=== PATIENT | female | born 1945 | race Caucasian/White ===

== ENCOUNTER → 2017-08-26 | Outpatient (CLI) | payer BC ==
[2016-06-20 11:54] VITALS: BP 134/77
--- NOTE | 2017-08-26 15:02 | KCIC ---
CHEST PA LATERAL History: 30 pound weight loss x1 month. Smoker. History of breast cancer. Comparison: None. Findings: Atherosclerotic aorta, arch. The cardiomediastinal silhouette is normal. Pulmonary vasculature is normal. Calcified left hilar lymph nodes. There is a 10 mm nodule on the lateral view that projects over the upper trachea. No correlate is seen on the frontal view. The lungs are otherwise clear. No pleural effusion or pneumothorax is seen. There is degenerative endplate spurring of the thoracic spine. There are bilateral breast implants. IMPRESSION: 10 mm nodule that projects over the upper trachea on the lateral view. No correlate is seen on the PA view. Recommend further evaluation with CT chest. Electronically signed by: Freddy Mirza MD (08/26/2017 2:58 PM) [id number]
== END | disposition home or self-care (01) ==
LOC: KCIC 10:24
PROVIDERS: ATTEND Family Medicine
DX: M79.89 Other specified soft tissue disorders (principal); R63.4 Abnormal weight loss; F17.200 Nicotine dependence, unspecified, uncomplicated; Z85.3 Personal history of malignant neoplasm of breast
CPT/HCPCS: 71020

== ENCOUNTER → 2017-09-18 | Outpatient (CLI) | payer BC ==
[2016-06-20 11:54] VITALS: BP 134/77
--- NOTE | 2017-09-18 10:35 | CARD ---
APPROVED REPORT EXAM: Two-dimensional and M-mode echocardiogram with Doppler and color Doppler. Other Information Quality : Technically Limited Rhythm : NSRTechnically limited study due to implants. INDICATION Dyspnea 2D DIMENSIONS RVDd2.5 (2.9-3.5cm)Left Atrium(2D)3.2 (1.6-4.0cm) IVSd1.1 (0.7-1.1cm)Aortic Root(2D)2.6 (2.0-3.7cm) LVDd4.7 (3.9-5.9cm)LVOT Diameter2.0 (1.8-2.4cm) PWd1.1 (0.7-1.1cm)LVDs3.4 (2.5-4.0cm) FS (%) 28.4 %SV56.6 ml LVEF(%)54.8 (>50%) Aortic Valve AoV Peak Satya.134.0cm/sAoV VTI26.6cm AO Peak GR.7.2mmHgLVOT Peak Satya.121.7cm/s LVOT VTI 23.09cmAO Mean GR.4mmHg JILL (VMAX)2.07lu3OYV (VTI)2.66cm2 Mitral Valve MV E Ifpkuodk286.4cm/sMV E Peak Gr.129mmHg MV DECEL EIME685bsAY A Dgugwnvq659.9cm/s MV E Mean Gr.5mmHgMV TSK81hr E/A Ratio0.9MV A Attqdnlw46le MVA (PHT)4.07cm2 TDI E/Lateral E'16.2E/Medial E'13.6 Tricuspid Valve TR P. Thqkiqhs436nr/sRAP DLZBBQCL6gpNb TR Peak Gr.05ouFmYGKJ25jlFv Pulmonary Vein S1 Tjznkevk76.3cm/sD2 Xnbknsxr41.3cm/s LEFT VENTRICLE The left ventricle is normal size. There is mild concentric left ventricular hypertrophy. Left ventri rex systolic function is normal. The Ejection Fraction is 65%. There is normal LV segmental wall lilli on. The left ventricular diastolic function and filling is normal for age. There is no ventricular se ptal defect visualized. RIGHT VENTRICLE The right ventricle is normal size. The right ventricular systolic function is normal. ATRIA The left atrium size is normal. The right atrium size is normal. The interatrial septum is intact wit h no evidence for an atrial septal defect or patent foramen ovale as noted on 2-D or Doppler imaging. AORTIC VALVE The aortic valve is not well visualized. Doppler and Color Flow revealed no significant aortic regurg itation. There is no significant aortic valvular stenosis. MITRAL VALVE Mitral annular calcification is moderate. The mitral valve leaflets are moderately thickened and calc ified. There is no mitral valve stenosis. Doppler and Color Flow revealed mild mitral regurgitation. TRICUSPID VALVE The tricuspid valve is normal in structure. Doppler and Color Flow revealed mild tricuspid regurgitat ion. The PA pressure was estimated at 34 mmHg. There is no tricuspid valve stenosis. PULMONIC VALVE The pulmonic valve is not well visualized. Doppler and Color Flow revealed no pulmonic valvular regur gitation. There is no pulmonic valvular stenosis. GREAT VESSELS The aortic root is normal in size. Normal pulmonary venous flow (Doppler). The IVC is normal in size and collapses >50% with inspiration. PERICARDIAL EFFUSION There is no evidence of significant pericardial effusion. Critical Notification Critical Value: No <Conclusion> Left ventricle systolic function is normal. The Ejection Fraction is 65%. There is normal LV segmental wall motion. Mitral annular calcification is moderate. The mitral valve leaflets are moderately thickened and lois cified. Doppler and Color Flow revealed mild mitral regurgitation. Doppler and Color Flow revealed mild tricuspid regurgitation. The PA pressure was estimated at 34 mmH g.
--- NOTE | 2017-09-18 11:16 | RAD ---
APPROVED REPORT Bilateral Lower Extremity Venous Study for DVT Patient Location: OUT-PATIENT Indications Lower Extremity Edema: Bilateral Vein Imaging (Right) CFV (R): Compressible SFJ (R): Compressible FEM (R): Compressible POP (R): Compressible DFV (R): Compressible PTV (R): Spontaneous Peroneals (R): Spontaneous Vein Imaging (Left) CFV (L): Compressible SFJ (L): Compressible FEM (L): Compressible POP (L): Compressible DFV (L): Compressible PTV (L): Spontaneous Peroneals (L): Spontaneous Doppler Evaluation (Right) CFV (R): Spontaneous POP (R):Spontaneous Doppler Evaluation (Left) CFV (L):Spontaneous POP (L):Spontaneous Findings Lujan scale images of the bilateral lower extremity deep veins do not reveal any evidence of thrombus. The veins appear to be compressible. Spectral and color Doppler images do not reveal any obstruction to flow. Critical Notification Critical Value: No <Conclusion> Negative for DVT in the bilateral lower extremities
--- NOTE | 2017-09-18 11:48 | RAD ---
APPROVED REPORT Patient Location : OUT-PATIENT Indications Lower Extremity Edema : Bilateral Findings Lujan scale images of the saphenofemoral junctions and saphenous popliteal segments do not reveal any evidence of thrombus on limited imaging. The right great saphenous vein measures 2.7 mm and the left great saphenous vein measures 4 mm. Both the right left greater saphenous veins and the lesser saphen ous veins do not show any evidence of reflux. Critical Notification Critical Value: No <Conclusion> No evidence of reflux in the bilateral greater and lesser saphenous veins.
== END | disposition home or self-care (01) ==
LOC: US 07:45
PROVIDERS: ATTEND Internal Medicine Cardiovascular Disease
DX: I08.1 Rheumatic disorders of both mitral and tricuspid valves (principal); R60.0 Localized edema; R06.00 Dyspnea, unspecified; R06.02 Shortness of breath
CPT/HCPCS: 93306; 93970

== ENCOUNTER → 2017-10-30 | Outpatient (CLI) | payer BC ==
[2017-10-04 10:46] VITALS: BP 150/69
--- NOTE | 2017-10-30 10:51 | KCIC ---
Indication: Right hip pain for one month. Time of exam 10:23 AM Femoral acetabular alignment is normal. The joint space is well-maintained. The femoral head and neck are intact. No fractures are seen. Rami are intact. IMPRESSION: No acute bony abnormality is detected. Electronically signed by: Fareed Torrez MD (10/30/2017 10:47 AM) [id number]
== END | disposition home or self-care (01) ==
LOC: KCIC 10:14
PROVIDERS: ATTEND Family Medicine
DX: M25.551 Pain in right hip (principal)
CPT/HCPCS: 73502

== ENCOUNTER 2017-12-03 16:25 | Inpatient (IN) | payer BC ==
[2017-12-03 17:40] LABS: ADD MAN DIFF? NO
[2017-12-03 17:44] LABS: BASO # 0.1 x10^3/uL (0.0-0.2); BASO % 1 % (0-3); EOS # 0.1 x10^3/uL (0.0-0.7); EOS % 1 % (0-3); HEMATOCRIT 35.6 % (36.0-47.0); HEMOGLOBIN 11.5 g/dL (12.0-15.5); LYMPH % 8 % (24-48); MEAN CORPUSCULAR HEMOGLOBIN 27 pg (25-35); MEAN CORPUSCULAR HGB CONC 32 g/dL (31-37); MEAN CORPUSCULAR VOLUME 82 fL (79-100); MONO # 0.9 x10^3/uL (0.0-1.1); MONO % 7 % (0-9); NEUT # 10.6 x10^3uL (1.8-7.7); NEUT % 83 % (31-73); PLATELET COUNT 560 x10^3/uL (140-400); RED BLOOD COUNT 4.34 x10^6/uL (3.50-5.40); RED CELL DISTRIBUTION WIDTH 20.6 % (11.5-14.5); WHITE BLOOD COUNT 12.7 x10^3/uL (4.0-11.0)
[2017-12-03 17:52] LABS: INR 1.2 (0.8-1.1); PARTIAL THROMBOPLASTIN TIME 31 SEC (24-38); PROTHROMBIN TIME PATIENT 14.1 SEC (11.7-14.0)
[2017-12-03 18:11] LABS: ETHANOL < 10 mg/dL (0-10); SALIC 3.5 mg/dL (2.8-20.0)
[2017-12-03 18:12] LABS: ACETAMIN < 2 mcg/ml (10-30)
[2017-12-03 18:14] LABS: ANION GAP 13 (6-14); BLOOD UREA NITROGEN 40 mg/dL (7-20); BUN/CREATININE RATIO 24 (6-20); CALCIUM 10.1 mg/dL (8.5-10.1); CARBON DIOXIDE 28 mmol/L (21-32); CHLORIDE 97 mmol/L (98-107); CREATININE 1.7 mg/dL (0.6-1.0); GFR 29.6; GLUCOSE 128 mg/dL (70-99); POTASSIUM 4.6 mmol/L (3.5-5.1); SODIUM 138 mmol/L (136-145)
[2017-12-03 18:18] LABS: ALBUMIN 4.2 g/dL (3.4-5.0); ALBUMIN/GLOBULIN RATIO 1.1 (1.0-1.7); ALK PHOS 91 U/L (46-116); ALT (SGPT) 16 U/L (14-59); AST (SGOT) 22 U/L (15-37); TOTAL BILIRUBIN 0.9 mg/dL (0.2-1.0)
[2017-12-03 18:27] LABS: NT-PRO BNP 726 pg/mL (0-124)
[2017-12-03 18:36] LABS: ANISOCYTOSIS MOD; PLT ESTIMATE INCREASED (ADEQUATE); POLYCHROMASIA SLIGHT; SCHISTOCYTES FEW
[2017-12-03] MEDS: IV NORMAL SALINE 1000ML BAG 1,000 ML IV ×2 (18:50→23:23)
[2017-12-03] MEDS: ONDANSETRON PF 4 MG/2 ML VIAL. IV (18:50)
[2017-12-03] MEDS: fentaNYL PF VIAL 100 MCG/2 ML VIAL IV ×2 (18:51→23:22)
[2017-12-03 19:11] LABS: TROPONINI < 0.017 ng/mL (0.000-0.055)
[2017-12-03 20:03] LABS: LIPASE 169 U/L (73-393)
[2017-12-03] MEDS ORDERED: ONDANSETRON PF 4 MG/2 ML VIAL. IV (20:45)
[2017-12-03 23:55] LABS: BILIRUBIN,URINE SMALL (NEG); CLARITY,URINE CLOUDY; COLOR,URINE YELLOW; GLUCOSE,URINE NEGATIVE (NEG); NITRITE,URINE NEGATIVE (NEG); PH,URINE 5.5; PROTEIN,URINE 30 mg/dL (NEG-TRACE); UROBILINOGEN,URINE 0.2 mg/dL (0.2 mg/dL)
[2017-12-04 00:04] LABS: BACTERIA,URINE MODERATE /HPF (0-FEW); RBC,URINE OCC /HPF (0-2); SQUAMOUS EPITHELIAL CELL,UR FEW /LPF; WBC,URINE OCC /HPF (0-4)
[2017-12-04 00:05] LABS: AMORPHOUS SEDIMENT,UR PRESENT /HPF; HYALINE CASTS, URINE MANY /HPF
[2017-12-04 01:17] LABS: BARBITURATES NEG (NEG); BENZODIAZEPINES NEG (NEG); CANNABINOIDS NEG (NEG); COCAINE NEG (NEG); METHADONE NEG (NEG); OPIATES NEG (NEG); PHENCYCLIDINE NEG (NEG)
[2017-12-04 01:27] LABS: AMPHETAMINE/METHAMPHETAMINE NEG (NEG); ETHANOL, URINE NEG (NEG)
[2017-12-04 05:22] LABS: ADD MAN DIFF? NO
[2017-12-04 05:29] LABS: BASO # 0.1 x10^3/uL (0.0-0.2); BASO % 1 % (0-3); EOS # 0.2 x10^3/uL (0.0-0.7); EOS % 2 % (0-3); HEMATOCRIT 30.5 % (36.0-47.0); LYMPH # 1.3 x10^3/uL (1.0-4.8); LYMPH % 13 % (24-48); MEAN CORPUSCULAR HEMOGLOBIN 27 pg (25-35); MEAN CORPUSCULAR HGB CONC 33 g/dL (31-37); MEAN CORPUSCULAR VOLUME 83 fL (79-100); MONO # 0.9 x10^3/uL (0.0-1.1); MONO % 9 % (0-9); NEUT # 7.9 x10^3uL (1.8-7.7); NEUT % 77 % (31-73); PLATELET COUNT 438 x10^3/uL (140-400); RED BLOOD COUNT 3.69 x10^6/uL (3.50-5.40); WHITE BLOOD COUNT 10.3 x10^3/uL (4.0-11.0)
[2017-12-04] MEDS: MORPHINE SULFATE 2 MG/ML DISP.SYRIN. IV ×5 (05:46→22:28)
[2017-12-04 06:06] LABS: ANION GAP 11 (6-14); BLOOD UREA NITROGEN 35 mg/dL (7-20); CALCIUM 8.3 mg/dL (8.5-10.1); CARBON DIOXIDE 26 mmol/L (21-32); CHLORIDE 104 mmol/L (98-107); CREATININE 1.3 mg/dL (0.6-1.0); GFR 40.4; GLUCOSE 82 mg/dL (70-99); POTASSIUM 3.7 mmol/L (3.5-5.1); SODIUM 141 mmol/L (136-145)
[2017-12-04] MEDS: IV NORMAL SALINE 1000ML BAG 1,000 ML IV ×2 (09:47→19:48)
[2017-12-04] MEDS: POLYETHYLENE GLYCOL 3350 238 GM POWDER PO (15:17)
[2017-12-04] MEDS: ENOXAPARIN 40 MG/0.4 ML SYRINGE. SQ (20:41)
[2017-12-05] MEDS ORDERED: MORPHINE SULFATE 2 MG/ML DISP.SYRIN. IV (07:00)
[2017-12-05] MEDS ORDERED: ONDANSETRON PF 4 MG/2 ML VIAL. IV (07:00)
[2017-12-05] MEDS ORDERED: PROCHLORPERAZINE 10 MG/2 ML VIAL. IV (07:00)
[2017-12-05] MEDS ORDERED: LIDOCAINE 1% PF 2 ML VIAL. ID (07:00)
[2017-12-05] MEDS ORDERED: HYDROmorphone 2 MG/ML VIAL IV (07:00)
[2017-12-05] MEDS ORDERED: fentaNYL PF VIAL 100 MCG/2 ML VIAL IV ×2 (07:00)
[2017-12-05] MEDS: PANTOPRAZOLE 40 MG TABLET.DR. PO (08:20)
[2017-12-05] MEDS: MORPHINE SULFATE 2 MG/ML DISP.SYRIN. IV ×2 (08:20→20:29)
[2017-12-05] MEDS: IV RINGERS,LACTATED 1000ML 1,000 ML IV (12:17)
[2017-12-05] MEDS ORDERED: PROPOFOL 40 ML IV (12:44)
[2017-12-05 13:24] LABS: CA 19-9 16 U/mL (0-35)
[2017-12-05 13:24] LABS: CA 19-9 13 U/mL (0-35)
[2017-12-05] MEDS: ENOXAPARIN 40 MG/0.4 ML SYRINGE. SQ (23:56)
[2017-12-06 07:25] LABS: ADD MAN DIFF? NO
[2017-12-06 07:30] LABS: BASO # 0.1 x10^3/uL (0.0-0.2); BASO % 1 % (0-3); EOS # 0.2 x10^3/uL (0.0-0.7); EOS % 3 % (0-3); HEMOGLOBIN 10.1 g/dL (12.0-15.5); LYMPH # 1.3 x10^3/uL (1.0-4.8); LYMPH % 20 % (24-48); MEAN CORPUSCULAR HEMOGLOBIN 27 pg (25-35); MEAN CORPUSCULAR HGB CONC 32 g/dL (31-37); MEAN CORPUSCULAR VOLUME 85 fL (79-100); MONO # 0.5 x10^3/uL (0.0-1.1); MONO % 8 % (0-9); NEUT # 4.4 x10^3uL (1.8-7.7); NEUT % 68 % (31-73); PLATELET COUNT 397 x10^3/uL (140-400); RED BLOOD COUNT 3.77 x10^6/uL (3.50-5.40); RED CELL DISTRIBUTION WIDTH 16.4 % (11.5-14.5); WHITE BLOOD COUNT 6.5 x10^3/uL (4.0-11.0)
[2017-12-06] MEDS: PANTOPRAZOLE 40 MG TABLET.DR. PO (07:45)
[2017-12-06 07:54] LABS: ANION GAP 7 (6-14); BLOOD UREA NITROGEN 10 mg/dL (7-20); CALCIUM 8.3 mg/dL (8.5-10.1); CARBON DIOXIDE 25 mmol/L (21-32); CHLORIDE 111 mmol/L (98-107); CREATININE 0.9 mg/dL (0.6-1.0); GFR 61.7; GLUCOSE 92 mg/dL (70-99); POTASSIUM 3.8 mmol/L (3.5-5.1); SODIUM 143 mmol/L (136-145)
== END 2017-12-06 16:00 | disposition home or self-care (01) | DRG 383 ==
LOC: ER 16:25 → 5 NORTH 20:25
PROC: 0DJD8ZZ Inspection of Lower Intestinal Tract, Via Natural or Artificial Opening Endoscopic (ICD-10-PCS; principal; 2017-12-05 12:54)
PROC: 0DB98ZX Excision of Duodenum, Via Natural or Artificial Opening Endoscopic, Diagnostic (ICD-10-PCS; 2017-12-05 12:54)
DX: K26.9 Duodenal ulcer, unspecified as acute or chronic, without hemorrhage or perforation (principal); R45.851 Suicidal ideations; N17.0 Acute kidney failure with tubular necrosis; D50.9 Iron deficiency anemia, unspecified; E11.9 Type 2 diabetes mellitus without complications; E78.00 Pure hypercholesterolemia, unspecified; F32.9 Major depressive disorder, single episode, unspecified; E78.5 Hyperlipidemia, unspecified; F03.90 Unspecified dementia, unspecified severity, without behavioral disturbance, psychotic disturbance, mood disturbance, and anxiety; F17.210 Nicotine dependence, cigarettes, uncomplicated; G89.29 Other chronic pain; I10 Essential (primary) hypertension; J44.9 Chronic obstructive pulmonary disease, unspecified; K29.70 Gastritis, unspecified, without bleeding; K64.8 Other hemorrhoids; K86.9 Disease of pancreas, unspecified; M19.90 Unspecified osteoarthritis, unspecified site; Z85.3 Personal history of malignant neoplasm of breast; Z90.10 Acquired absence of unspecified breast and nipple; Z90.710 Acquired absence of both cervix and uterus; F41.9 Anxiety disorder, unspecified
CPT/HCPCS: 36415; 71045; 74176; 80048; 80053; 80307; 80329; 81001; 83690; 83880; 84484; 85025; 85610; 85730; 86301; 87086; 88305; 93005; 96361; 96374; 99285; 99285-25; G0480; J1650; J2270; J2405; J2704; J3010; J7030; J7120

== ENCOUNTER 2018-07-03 13:58 | Emergency (ER) | payer BC ==
[~2018-07-03] VITALS: Ht 162.6 cm; Wt 54.4 kg
[~2018-07-03 13:58] MED LIST: PANT40TA5 PO
[2018-07-03] MEDS ORDERED: IV NORMAL SALINE 1000ML BAG 1,000 ML IV SCH (14:22)
[2018-07-03 14:43] LABS: BASO # 0.1 x10^3/uL (0.0-0.2); BASO % 1 % (0-3); EOS # 0.2 x10^3/uL (0.0-0.7); EOS % 3 % (0-3); HEMATOCRIT 31.8 % (36.0-47.0); HEMOGLOBIN 10.6 g/dL (12.0-15.5); LYMPH # 1.2 x10^3/uL (1.0-4.8); LYMPH % 13 % (24-48); MEAN CORPUSCULAR HEMOGLOBIN 28 pg (25-35); MEAN CORPUSCULAR HGB CONC 33 g/dL (31-37); MEAN CORPUSCULAR VOLUME 86 fL (79-100); MONO # 0.7 x10^3/uL (0.0-1.1); MONO % 7 % (0-9); NEUT # 7.2 x10^3uL (1.8-7.7); NEUT % 76 % (31-73); PLATELET COUNT 368 x10^3/uL (140-400); RED BLOOD COUNT 3.71 x10^6/uL (3.50-5.40); RED CELL DISTRIBUTION WIDTH 17.1 % (11.5-14.5); WHITE BLOOD COUNT 9.5 x10^3/uL (4.0-11.0)
--- NOTE | 2018-07-03 14:51 | PHYS DOC ---
Past Medical History Past Medical History: Cancer, Depression, High Cholesterol, Hypertension, Other Additional Past Medical Histor: BREAST CA, CHRONIC R. HIP PAIN Past Surgical History: Hysterectomy, Other Additional Past Surgical Histo: BREAST RECONSTRUCTION,BILAT MASTECTOMY, R. SHOULDER Alcohol Use: None Drug Use: None Adult General Chief Complaint Chief Complaint: DIZZY/LIGHT HEADED HPI HPI Patient is a 72-year-old female who presents to ER via EMS with complaint of feeling very depressed and having suicidal thoughts. Patient reportedly had been brought in for heat injury. Patient had been working in her house that is not air conditioned and became very dizzy. Patient went to lie down outside and apparently daughter had called EMS to evaluate her. Patient does admit that house is not air-conditioned and it was very hot inside where she was doing her work. She states that her main complaint is that she just feels very depressed and wants to . She states that she misses her third and just wants to be with him. Patient's third is . She denies any actual plan for suicide but thinks about it regularly. Review of Systems Review of Systems Constitutional: Denies fever or chills [] Respiratory: Denies cough or shortness of breath [] Cardiovascular: Denies chest pain[] GI: Denies abdominal pain, nausea, vomiting [] Integument: Denies rash or skin lesions [] Neurologic: Complains of lightheadedness and dizziness[] Psychiatric: Complains of depression and suicidal thoughts. Current Medications Current Medications Current Medications Medications (Trade) Dose Ordered Sig/[facility] Start Time Stop Time Status Last Admin Dose Admin Sodium Chloride 1,000 ml @ 1,000 mls/hr Q1H 07/03/18 14:22 07/03/18 15:21 DC 07/03/18 15:05 1,000 MLS/HR Allergies Allergies Allergies Coded Allergies Type Severity Reaction Last Updated Verified No Known Drug Allergies 12/05/17 No Physical Exam Physical Exam Constitutional: Well developed, well nourished, no acute distress, non-toxic appearance. [] HENT: Normocephalic, atraumatic, bilateral external ears normal, oropharynx moist, no oral exudates, nose normal. [] Eyes: PERRLA, EOMI, conjunctiva normal, no discharge. [] Neck: Normal range of motion, no tenderness, supple, no stridor. [] Cardiovascular:Heart rate regular rhythm, no murmur [] Lungs & Thorax: Bilateral breath sounds clear to auscultation [] Abdomen: Bowel sounds normal, soft, no tenderness, no masses, no pulsatile masses. [] Skin: Warm, dry, no erythema, no rash. [] Extremities: No tenderness, no cyanosis, no clubbing, ROM intact, no edema. [] Neurologic: Alert and oriented X 3, normal motor function, normal sensory function, no focal deficits noted. [] Psychologic: Flattened affect with depressed mood. [] Current Patient Data Vital Signs Vital Signs Date Time Temp Pulse Resp B/P (MAP) Pulse Ox O2 Delivery O2 Flow Rate FiO2 07/03/18 13:58 98.1 97 24 175/78 (110) 97 Room Air 98.1 Lab Values Laboratory Tests Test 07/03/18 13:55 07/03/18 14:03 White Blood Count 9.5 x10^3/uL (4.0-11.0) Red Blood Count 3.71 x10^6/uL (3.50-5.40) Hemoglobin 10.6 g/dL (12.0-15.5) L Hematocrit 31.8 % (36.0-47.0) L Mean Corpuscular Volume 86 fL (79-100) Mean Corpuscular Hemoglobin 28 pg (25-35) Mean Corpuscular Hemoglobin Concent 33 g/dL (31-37) Red Cell Distribution Width 17.1 % (11.5-14.5) H Platelet Count 368 x10^3/uL (140-400) Neutrophils (%) (Auto) 76 % (31-73) H Lymphocytes (%) (Auto) 13 % (24-48) L Monocytes (%) (Auto) 7 % (0-9) Eosinophils (%) (Auto) 3 % (0-3) Basophils (%) (Auto) 1 % (0-3) Neutrophils # (Auto) 7.2 x10^3uL (1.8-7.7) Lymphocytes # (Auto) 1.2 x10^3/uL (1.0-4.8) Monocytes # (Auto) 0.7 x10^3/uL (0.0-1.1) Eosinophils # (Auto) 0.2 x10^3/uL (0.0-0.7) Basophils # (Auto) 0.1 x10^3/uL (0.0-0.2) Sodium Level 140 mmol/L (136-145) Potassium Level 4.0 mmol/L (3.5-5.1) Chloride Level 105 mmol/L (98-107) Carbon Dioxide Level 27 mmol/L (21-32) Anion Gap 8 (6-14) Blood Urea Nitrogen 16 mg/dL (7-20) Creatinine 1.0 mg/dL (0.6-1.0) Estimated GFR (Cockcroft-Gault) 54.7 BUN/Creatinine Ratio 16 (6-20) Glucose Level 157 mg/dL (70-99) H Calcium Level 9.2 mg/dL (8.5-10.1) Magnesium Level 1.8 mg/dL (1.8-2.4) Total Bilirubin 0.3 mg/dL (0.2-1.0) Aspartate Amino Transferase (AST) 13 U/L (15-37) L Alanine Aminotransferase (ALT) 14 U/L (14-59) Alkaline Phosphatase 101 U/L (46-116) Total Protein 7.0 g/dL (6.4-8.2) Albumin 3.6 g/dL (3.4-5.0) Albumin/Globulin Ratio 1.1 (1.0-1.7) Urine Opiates Screen Neg (NEG) Urine Methadone Screen Neg (NEG) Urine Barbiturates Neg (NEG) Urine Phencyclidine Screen Neg (NEG) Urine Amphetamine/Methamphetamine Neg (NEG) Urine Benzodiazepines Screen Neg (NEG) Urine Cocaine Screen Neg (NEG) Urine Cannabinoids Screen Neg (NEG) Ethyl Alcohol Level < 10 mg/dL (0-10) Urine Ethyl Alcohol Neg (NEG) Urine Collection Type Unknown Urine Color Yellow Urine Clarity Clear Urine pH 5.5 Urine Specific [place] 1.025 Urine Protein Negative mg/dL (NEG-TRACE) Urine Glucose (UA) Negative mg/dL (NEG) Urine Ketones (Stick) Negative mg/dL (NEG) Urine Blood Negative (NEG) Urine Nitrite Negative (NEG) Urine Bilirubin Negative (NEG) Urine Urobilinogen Dipstick 1.0 mg/dL (0.2 mg/dL) Urine Leukocyte Esterase Negative (NEG) Urine RBC 0 /HPF (0-2) Urine WBC Occ /HPF (0-4) Urine Squamous Epithelial Cells Few /LPF Urine Bacteria 0 /HPF (0-FEW) Urine Mucus Mod /LPF Laboratory Tests 07/03/18 13:55 Laboratory Tests 07/03/18 13:55 EKG EKG [] Radiology/Procedures Radiology/Procedures [] Course & Med Decision Making Course & Med Decision Making Pertinent Labs and Imaging studies reviewed. (See chart for details) After evaluation of patient, mental health workup was completed on this patient. Patient was seen and evaluated by psychiatric assessment team and patient it has been deemed appropriate for outpatient management. Patient has safety contracted and has family who can check in on her regularly. Dragon Disclaimer Dragon Disclaimer This electronic medical record was generated, in whole or in part, using a voice recognition dictation system. Departure Departure Impression: Primary Impression: Dizziness Additional Impressions: Depression Suicidal thoughts Disposition: 01 HOME, SELF-CARE Condition: STABLE Referrals: DAVY WOODS MD (PCP) Patient Instructions: Depression, Adult, Dizziness, Suicidal Feelings, How to Help Yourself Additional Instructions: Follow-up with your primary care provider in the next few days. Problem Qualifiers Additional Impressions: Depression Depression Type: unspecified Qualified Codes: F32.9 - Major depressive disorder, single episode, unspecified DANAE RUGGIERO Jr. DO Jul 03, 2018 14:51
[2018-07-03 14:55] LABS: CALCIUM 9.2 mg/dL (8.5-10.1); GFR 54.7
[2018-07-03 14:59] LABS: BILIRUBIN,URINE NEGATIVE (NEG); CLARITY,URINE CLEAR; COLOR,URINE YELLOW; NITRITE,URINE NEGATIVE (NEG); PH,URINE 5.5; PROTEIN,URINE NEGATIVE (NEG-TRACE)
[2018-07-03 15:00] LABS: ALBUMIN 3.6 g/dL (3.4-5.0); ALBUMIN/GLOBULIN RATIO 1.1 (1.0-1.7); MAGNESIUM 1.8 mg/dL (1.8-2.4); TOTAL BILIRUBIN 0.3 mg/dL (0.2-1.0)
[2018-07-03 15:04] LABS: BARBITURATES NEG (NEG); BENZODIAZEPINES NEG (NEG); CANNABINOIDS NEG (NEG); COCAINE NEG (NEG); METHADONE NEG (NEG); OPIATES NEG (NEG); PHENCYCLIDINE NEG (NEG)
[2018-07-03 15:05] LABS: BACTERIA,URINE 0 /HPF (0-FEW); RBC,URINE 0 /HPF (0-2); SQUAMOUS EPITHELIAL CELL,UR FEW /LPF; WBC,URINE OCC /HPF (0-4)
[2018-07-03 15:09] LABS: AMPHETAMINE/METHAMPHETAMINE NEG (NEG)
[2018-07-03 17:30] VITALS: BP 174/80
== END 2018-07-03 17:43 | disposition home or self-care (01) ==
LOC: ER 13:58
DX: R45.851 Suicidal ideations (principal); F32.9 Major depressive disorder, single episode, unspecified; R42 Dizziness and giddiness; I10 Essential (primary) hypertension; E78.00 Pure hypercholesterolemia, unspecified; G89.29 Other chronic pain
CPT/HCPCS: 36415; 80053; 80307; 81001; 83735; 85025; 96360; 96361; 99285; G0480; J7030; G0479

== ENCOUNTER 2019-01-19 10:47 | Emergency (ER) | payer BC, OTHER ==
[~2019-01-19] VITALS: Ht 162.6 cm; Wt 74.8 kg
[2019-01-19] MEDS ORDERED: ASPIRIN 325 MG TABLET PO ONE (11:30)
[2019-01-19 11:43] VITALS: BP 159/95
--- NOTE | 2019-01-19 11:55 | RAD ---
EXAM: CHEST 1 VIEW History: Chest pain COMPARISON: 12/03/2017 TECHNIQUE: Single portable radiograph of the chest Findings/ impression: Mild cardiomegaly. Mild diffuse prominent appearing bilateral interstitial lung markings likely congestive changes or interstitial infiltrates slightly increased compared to prior exam. Electronically signed by: Deuce Sorto MD (01/19/2019 11:53 AM) [facility]-KCIC2
--- NOTE | 2019-01-19 12:51 | PHYS DOC ---
Past Medical History Past Medical History: Cancer, Diabetes-Type II Additional Past Medical Histor: BREAST CA, CHRONIC R. HIP PAIN Past Surgical History: Hysterectomy, Other Additional Past Surgical Histo: BREAST RECONSTRUCTION,BILAT MASTECTOMY, R. SHOULDER Alcohol Use: None Drug Use: None Adult General Chief Complaint Chief Complaint: CHEST PAIN HPI HPI Patient is a 73 year old female who presented to ER today for evaluation of bilateral chest pain that been off and on for 3 months. Patient denies any trouble breathing, no cough, no fever. Patient has history of breast cancer in the past, had mastectomy, had breast implanted about 20 years ago. Patient denies any recent trauma., No recent operation, no recent travel. Patient said the chest pain gets worse when she takes a deep breath or palpation on her chest. Review of Systems Review of Systems Constitutional: Denies fever or chills [] Eyes: Denies change in visual acuity, redness, or eye pain [] HENT: Denies nasal congestion or sore throat [] Respiratory: Denies cough or shortness of breath [] Cardiovascular: No additional information not addressed in HPI [] GI: Denies abdominal pain, nausea, vomiting, bloody stools or diarrhea [] : Denies dysuria or hematuria [] Musculoskeletal: Denies back pain or joint pain [] Integument: Denies rash or skin lesions [] Neurologic: Denies headache, focal weakness or sensory changes [] Endocrine: Denies polyuria or polydipsia [] All other systems were reviewed and found to be within normal limits, except as documented in this note. Current Medications Current Medications Current Medications Medications (Trade) Dose Ordered Sig/[facility] Start Time Stop Time Status Last Admin Dose Admin Aspirin (Shima Aspirin) 325 mg 1X ONCE 01/19/19 11:30 01/19/19 11:31 DC 01/19/19 12:33 325 MG Info (CONTRAST GIVEN -- Rx MONITORING) 1 each PRN DAILY PRN 01/19/19 14:30 01/21/19 14:29 Iohexol (Omnipaque 350 Mg/ml) 75 ml 1X ONCE 01/19/19 14:30 01/19/19 14:31 DC 01/19/19 14:30 75 ML Allergies Allergies Allergies Coded Allergies Type Severity Reaction Last Updated Verified No Known Drug Allergies 12/05/17 No Physical Exam Physical Exam Constitutional: Well developed, well nourished, no acute distress, non-toxic appearance. [] HENT: Normocephalic, atraumatic, bilateral external ears normal, oropharynx moist, no oral exudates, nose normal. [] Eyes: PERRLA, EOMI, conjunctiva normal, no discharge. [] Neck: Normal range of motion, no tenderness, supple, no stridor. [] Cardiovascular:Heart rate regular rhythm, no murmur [] Lungs & Thorax: Bilateral breath sounds clear to auscultation. Bilateral anterior chest wall tender to palpation. There is no crepitus. Abdomen: Bowel sounds normal, soft, no tenderness, no masses, no pulsatile masses. [] Skin: Warm, dry, no erythema, no rash. [] Back: No tenderness, no CVA tenderness. [] Extremities: No tenderness, no cyanosis, no clubbing, ROM intact, no edema. [] Neurologic: Alert and oriented X 3, normal motor function, normal sensory function, no focal deficits noted. [] Psychologic: Affect normal, judgement normal, mood normal. [] Current Patient Data Vital Signs Vital Signs Date Time Temp Pulse Resp B/P (MAP) Pulse Ox O2 Delivery O2 Flow Rate FiO2 01/19/19 11:43 98.2 104 20 159/95 (116) 99 Room Air 98.2 Lab Values Laboratory Tests Test 01/19/19 12:25 White Blood Count 8.2 x10^3/uL (4.0-11.0) Red Blood Count 3.83 x10^6/uL (3.50-5.40) Hemoglobin 9.6 g/dL (12.0-15.5) L Hematocrit 30.5 % (36.0-47.0) L Mean Corpuscular Volume 80 fL (79-100) Mean Corpuscular Hemoglobin 25 pg (25-35) Mean Corpuscular Hemoglobin Concent 32 g/dL (31-37) Red Cell Distribution Width 16.7 % (11.5-14.5) H Platelet Count 447 x10^3/uL (140-400) H Neutrophils (%) (Auto) 74 % (31-73) H Lymphocytes (%) (Auto) 15 % (24-48) L Monocytes (%) (Auto) 8 % (0-9) Eosinophils (%) (Auto) 2 % (0-3) Basophils (%) (Auto) 1 % (0-3) Neutrophils # (Auto) 6.0 x10^3uL (1.8-7.7) Lymphocytes # (Auto) 1.2 x10^3/uL (1.0-4.8) Monocytes # (Auto) 0.7 x10^3/uL (0.0-1.1) Eosinophils # (Auto) 0.2 x10^3/uL (0.0-0.7) Basophils # (Auto) 0.1 x10^3/uL (0.0-0.2) Prothrombin Time 13.0 SEC (11.7-14.0) Prothrombin Time INR 1.0 (0.8-1.1) Sodium Level 143 mmol/L (136-145) Potassium Level 4.1 mmol/L (3.5-5.1) Chloride Level 104 mmol/L (98-107) Carbon Dioxide Level 28 mmol/L (21-32) Anion Gap 11 (6-14) Blood Urea Nitrogen 22 mg/dL (7-20) H Creatinine 1.0 mg/dL (0.6-1.0) Estimated GFR (Cockcroft-Gault) 54.5 BUN/Creatinine Ratio 22 (6-20) H Glucose Level 185 mg/dL (70-99) H Calcium Level 8.8 mg/dL (8.5-10.1) Magnesium Level 1.7 mg/dL (1.8-2.4) L Total Bilirubin 0.2 mg/dL (0.2-1.0) Aspartate Amino Transferase (AST) 13 U/L (15-37) L Alanine Aminotransferase (ALT) 15 U/L (14-59) Alkaline Phosphatase 112 U/L (46-116) Creatine Kinase 49 U/L (26-192) Creatine Kinase MB (Mass) 1.2 ng/mL (0.0-3.6) Creatine Kinase MB Relative Index % (0-4) Troponin I Quantitative 0.022 ng/mL (0.000-0.055) PP-Fox-X-Type Natriuretic Peptide 1892 pg/mL (0-124) H Total Protein 6.9 g/dL (6.4-8.2) Albumin 3.4 g/dL (3.4-5.0) Albumin/Globulin Ratio 1.0 (1.0-1.7) Lipase 126 U/L (73-393) Laboratory Tests 01/19/19 12:25 Laboratory Tests 01/19/19 12:25 EKG EKG EKG RATE OF 104, SINUS TACHYCARDIA, RBBB, NO STEMI. Radiology/Procedures Radiology/Procedures [][address] [address] IMAGING REPORT Signed PATIENT: DONI DIAZ ACCOUNT: [id number] : 1945 LOCATION: ER AGE: 73 SEX: F EXAM STATUS: PRE ER ORD. PHYSICIAN: MOIRA COLE DO REASON: CHEST PAIN PROCEDURE: PORTABLE CHEST 1V EXAM: CHEST 1 VIEW History: Chest pain COMPARISON: 12/03/2017 TECHNIQUE: Single portable radiograph of the chest Findings/ impression: Mild cardiomegaly. Mild diffuse prominent appearing bilateral interstitial lung markings likely congestive changes or interstitial infiltrates slightly increased compared to prior exam. Electronically signed by: Deuce Sorto MD (01/19/2019 11:53 AM) [facility] [place]-[facility]2 DICTATED and SIGNED BY: DEUCE SORTO MD DATE: 01/19/[address] [address] IMAGING REPORT Signed PATIENT: DONI DIAZ ACCOUNT: [id number] : 1945 LOCATION: ER AGE: 73 SEX: F EXAM STATUS: REG ER ORD. PHYSICIAN: MOIRA COLE DO REASON: CHEST PAIN, SOA, HX OF BREAST CANCER, EVALUATE FOR PE PROCEDURE: CT ANGIOGRAPHY CHEST CTA OF THE CHEST WITH AND WITHOUT CONTRAST Clinical indications: Chest pain and shortness of air. History of breast cancer. Technique: Noncontrast axial localizer was performed. After IV infusion of 75 cc of Omnipaque 350, helical CT scanning of the chest was performed using the CT pulmonary embolism protocol. A coronal MIP reconstruction was generated. PQRS compliance Statement One or more of the following individualized dose reduction techniques were utilized for this study: 1. Automated exposure control 2. Adjustment of the mA and/or kV according to patient size 3. Use of iterative reconstruction technique Comparison: No previous chest CT available. Findings: No pulmonary embolism is evident. No thoracic aortic dissection or focal aneurysmal dilatation is seen. No enlarged thoracic lymphadenopathy is evident. The heart size is normal and no pericardial effusion is seen. A small hiatal hernia is evident. No pleural effusion or pneumothorax is seen. The proximal bronchial tree is patent. There is mild atelectasis of the lingula. Mild atelectasis of the posterior right lung base is seen. No lung consolidation with air bronchograms is seen. No lung mass is evident. No lytic process is seen. There is a bone island versus osteoblastic lesion of the left glenoid. This is unchanged from chest x-ray dated December 03, 2017 and therefore most likely represents a bone island. Bilateral breast implants are seen. There is intracapsular rupture of the left breast implant. There is fluid between the capsule of the implant and the fibrous capsule. There is intracapsular rupture of the right breast implant as well. IMPRESSION: No pulmonary embolism. No acute lung infiltrate. Additional findings as discussed above. Electronically signed by: Pelon Calderon MD (01/19/2019 3:52 PM) [facility] DICTATED and SIGNED BY: PELON CALDERON MD DATE: 01/19/191539 Course & Med Decision Making Course & Med Decision Making Pertinent Labs and Imaging studies reviewed. (See chart for details). CT SCAN OF CHEST SHOWN BILATERAL BREAST IMPLANTS RUPTURED, WORSE ON THE LEFT SIDE. This problem most likely caused her to have chest pain. Patient does not want to be admitted to hospital. This physician contacted Dr. Rajan, general surgeon home restoration service supervisor, about the evaluation of ruptured breast implant, he recommended that patient need to follow up with plastic surgery for revision. This physician then contacted patient's PCP, Dr. Davy Finnegan, who agreed to follow up with her in his clinic and will arrange for plastic surgery follow up. Dragon Disclaimer Dragon Disclaimer This electronic medical record was generated, in whole or in part, using a voice recognition dictation system. Departure Departure Impression: Primary Impression: Breast implant rupture Additional Impression: Chest pain Disposition: 01 HOME, SELF-CARE Condition: STABLE Referrals: DAVY WOODS MD (PCP) PLEASE FOLLOW UP WITH YOUR FAMILY DOCTOR TO HAVE A REFERRAL TO A PLASTIC SURGEON TO CORRECT YOUR BREAST IMPLANT RUPTURE. Patient Instructions: Chest Pain (Nonspecific) Problem Qualifiers MOIRA COLE DO Jan 19, 2019 12:51
[2019-01-19 12:55] LABS: CALCIUM 8.8 mg/dL (8.5-10.1); GFR 54.5; POTASSIUM 4.1 mmol/L (3.5-5.1)
[2019-01-19 12:56] LABS: BASO # 0.1 x10^3/uL (0.0-0.2); BASO % 1 % (0-3); EOS # 0.2 x10^3/uL (0.0-0.7); EOS % 2 % (0-3); HEMATOCRIT 30.5 % (36.0-47.0); HEMOGLOBIN 9.6 g/dL (12.0-15.5); LYMPH # 1.2 x10^3/uL (1.0-4.8); LYMPH % 15 % (24-48); MEAN CORPUSCULAR HEMOGLOBIN 25 pg (25-35); MEAN CORPUSCULAR HGB CONC 32 g/dL (31-37); MEAN CORPUSCULAR VOLUME 80 fL (79-100); MONO # 0.7 x10^3/uL (0.0-1.1); MONO % 8 % (0-9); NEUT % 74 % (31-73); PLATELET COUNT 447 x10^3/uL (140-400); RED BLOOD COUNT 3.83 x10^6/uL (3.50-5.40); RED CELL DISTRIBUTION WIDTH 16.7 % (11.5-14.5); WHITE BLOOD COUNT 8.2 x10^3/uL (4.0-11.0)
[2019-01-19 13:00] LABS: ALBUMIN 3.4 g/dL (3.4-5.0); MAGNESIUM 1.7 mg/dL (1.8-2.4); TOTAL BILIRUBIN 0.2 mg/dL (0.2-1.0); TOTAL PROTEIN 6.9 g/dL (6.4-8.2)
[2019-01-19 13:07] LABS: CREATINE KINASE 49 U/L (26-192)
[2019-01-19] MEDS ORDERED: IOHEXOL 350 MG/ML 100 ML VIAL. IV ONE (14:30)
[2019-01-19] MEDS ORDERED: CONTRAST GIVEN. MC PRN (14:30)
--- NOTE | 2019-01-19 15:55 | RAD ---
CTA OF THE CHEST WITH AND WITHOUT CONTRAST Clinical indications: Chest pain and shortness of air. History of breast cancer. Technique: Noncontrast axial localizer was performed. After IV infusion of 75 cc of Omnipaque 350, helical CT scanning of the chest was performed using the CT pulmonary embolism protocol. A coronal MIP reconstruction was generated. PQRS compliance Statement One or more of the following individualized dose reduction techniques were utilized for this study: 1. Automated exposure control 2. Adjustment of the mA and/or kV according to patient size 3. Use of iterative reconstruction technique Comparison: No previous chest CT available. Findings: No pulmonary embolism is evident. No thoracic aortic dissection or focal aneurysmal dilatation is seen. No enlarged thoracic lymphadenopathy is evident. The heart size is normal and no pericardial effusion is seen. A small hiatal hernia is evident. No pleural effusion or pneumothorax is seen. The proximal bronchial tree is patent. There is mild atelectasis of the lingula. Mild atelectasis of the posterior right lung base is seen. No lung consolidation with air bronchograms is seen. No lung mass is evident. No lytic process is seen. There is a bone island versus osteoblastic lesion of the left glenoid. This is unchanged from chest x-ray dated December 03, 2017 and therefore most likely represents a bone island. Bilateral breast implants are seen. There is intracapsular rupture of the left breast implant. There is fluid between the capsule of the implant and the fibrous capsule. There is intracapsular rupture of the right breast implant as well. IMPRESSION: No pulmonary embolism. No acute lung infiltrate. Additional findings as discussed above. Electronically signed by: Dmitriy Calderon MD (01/19/2019 3:52 PM) [facility]
--- NOTE | 2019-01-20 09:37 | EKG ---
[facility] [address] [place] [address] Test Date: 2019-01-19 Test Time: 11:22:28 Pat Name: DONI DIAZ Department: Room: Gender: F Emergency Veterinary Technician: : 1945 Requested By: MOIRA COLE Order Number: [id number] Reading MD: Jose Ramon Cohen Measurements Intervals Scott Rate: 104 P: 62 IL: 132 QRS: -62 QRSD: 114 T: 51 QT: 350 QTc: 461 Interpretive Statements SINUS TACHYCARDIA LEFT ATRIAL ABNORMALITY ABNORMAL LEFT AXIS DEVIATION INCOMPLETE RIGHT BUNDLE BRANCH BLOCK ABNORMAL ECG Electronically Signed On 01-27-2019 10:45:52 ENZYME CHEMIST by Jose Ramon Cohen
== END 2019-01-19 17:12 | disposition home or self-care (01) ==
LOC: ER 12:22
DX: T85.49XA Other mechanical complication of breast prosthesis and implant, initial encounter (principal); R07.89 Other chest pain; E11.9 Type 2 diabetes mellitus without complications; G89.29 Other chronic pain; Z79.82 Long term (current) use of aspirin; Y82.8 Other medical devices associated with adverse incidents; Y92.89 Other specified places as the place of occurrence of the external cause
CPT/HCPCS: 36415; 71045; 71275; 80053; 82550; 82553; 83690; 83735; 83880; 84484; 85025; 85610; 93005; 99284; Q9967

== ENCOUNTER 2021-07-18 12:21 | Emergency (ER) | payer BC, OTHER ==
[~2021-07-18] VITALS: Ht 162.6 cm; Wt 63.6 kg
[~2021-07-18 12:21] MED LIST changes: -PANT40TA5 PO; +PANT40TA77 PO
--- NOTE | 2021-07-18 12:43 | PHYS DOC ---
Past Medical History Past Medical History: Cancer, Diabetes-Type II Additional Past Medical Histor: BREAST CA, CHRONIC R. HIP PAIN Past Surgical History: Hysterectomy, Other Additional Past Surgical Histo: BREAST RECONSTRUCTION,BILAT MASTECTOMY, R. SHOULDER Smoking Status: Current Every Day Smoker Alcohol Use: None Drug Use: None General Adult EDM: Chief Complaint: ALTERED MENTAL STATUS HPI: HPI: 75-year-old female presents the emergency department complaining of altered mental status and confusion. She reports that she felt confused while she was driving earlier today and did not know how to get home. She reports that her confusion has gradually developed over the last 48 hours. She denies any history of dementia or Alzheimer's disease and has good insight into her confusion, stating that she does not feel mentally correct at this point. She denies any recent illness, drug use, alcohol use. She complains of some foul- smelling urine and difficulty with urination over the past 2 to 3 days. The patient denies nausea, vomiting, diarrhea, fever, chills, chest pain, shortness of breath, abdominal pain, back pain, cough, recent trauma, or any other complaints. Review of Systems: Review of Systems: Review of systems is otherwise negative except for what was mentioned in the HPI. Heart Score: C/O Chest Pain: No Allergies: Allergies: Allergies Coded Allergies Type Severity Reaction Last Updated Verified No Known Drug Allergies 12/05/17 No Physical Exam: PE: Constitutional: No acute distress, non-toxic appearance. HENT: Atraumatic, bilateral external ears normal, nose normal. Eyes: PERRLA, EOMI, conjunctiva normal, no discharge. Neck: Normal range of motion, supple, no stridor. Cardiovascular: Heart rate regular rhythm. 2+ radial pulses Lungs & Thorax: No respiratory distress, symmetrical expansion. Bilateral breath sounds clear to auscultation Abdomen: Soft, no tenderness no CVA tenderness Skin: Warm, dry. Extremities: No tenderness, no cyanosis, ROM intact, no edema. Neurologic: Alert and oriented X 3, normal motor function, normal sensory function, no focal deficits noted. Non ataxic gait. GCS 14. Psychologic: Flat affect. Current Patient Data: Labs: Laboratory Tests Test 07/18/21 12:30 07/18/21 13:00 Urine Collection Type Unknown Urine Color Nenita Urine Clarity Clear Urine pH 5.5 (<5.0-8.0) Urine Specific Delmar 1.025 (1.000-1.030) Urine Protein 30 mg/dL (NEG-TRACE) Urine Glucose (UA) Negative mg/dL (NEG) Urine Ketones (Stick) Trace mg/dL (NEG) Urine Blood Negative (NEG) Urine Nitrite Negative (NEG) Urine Bilirubin Moderate (NEG) Urine Urobilinogen Dipstick 1.0 mg/dL (0.2 mg/dL) Urine Leukocyte Esterase Negative (NEG) Urine RBC 1-2 /HPF (0-2) Urine WBC 1-4 /HPF (0-4) Urine Squamous Epithelial Cells Few /LPF Urine Bacteria Few /HPF (0-FEW) Urine Hyaline Casts Many /HPF Urine Mucus Marked /LPF White Blood Count 11.6 x10^3/uL (4.0-11.0) Red Blood Count 4.61 x10^6/uL (3.50-5.40) Hemoglobin 13.4 g/dL (12.0-15.5) Hematocrit 39.9 % (36.0-47.0) Mean Corpuscular Volume 86 fL (79-100) Mean Corpuscular Hemoglobin 29 pg (25-35) Mean Corpuscular Hemoglobin Concent 34 g/dL (31-37) Red Cell Distribution Width 15.2 % (11.5-14.5) Platelet Count 433 x10^3/uL (140-400) Neutrophils (%) (Auto) 81 % (31-73) Lymphocytes (%) (Auto) 10 % (24-48) Monocytes (%) (Auto) 7 % (0-9) Eosinophils (%) (Auto) 1 % (0-3) Basophils (%) (Auto) 1 % (0-3) Neutrophils # (Auto) 9.4 x10^3/uL (1.8-7.7) Lymphocytes # (Auto) 1.2 x10^3/uL (1.0-4.8) Monocytes # (Auto) 0.8 x10^3/uL (0.0-1.1) Eosinophils # (Auto) 0.1 x10^3/uL (0.0-0.7) Basophils # (Auto) 0.1 x10^3/uL (0.0-0.2) Sodium Level 141 mmol/L (136-145) Potassium Level 3.8 mmol/L (3.5-5.1) Chloride Level 104 mmol/L (98-107) Carbon Dioxide Level 32 mmol/L (21-32) Anion Gap 5 (6-14) Blood Urea Nitrogen 11 mg/dL (7-20) Creatinine 1.2 mg/dL (0.6-1.0) Estimated GFR (Cockcroft-Gault) 43.9 Glucose Level 164 mg/dL (70-99) Calcium Level 8.9 mg/dL (8.5-10.1) Magnesium Level 1.8 mg/dL (1.8-2.4) Thyroid Stimulating Hormone (TSH) 0.391 uIU/mL (0.358-3.74) Vital Signs: Vital Signs Date Time Temp Pulse Resp B/P (MAP) Pulse Ox O2 Delivery O2 Flow Rate FiO2 07/18/21 12:27 98.8 102 20 178/80 (116) 95 Room Air 98.8 Radiology/Procedures: Radiology/Procedures: Exam Date: 07/18/2021 1:[address] HEAD/BRAIN WO Indication: Reason: Altered mental status / Spl. Instructions: / History: . TECHNIQUE: Head CT was performed without intravenous contrast. One or more of the following dose reduction techniques were utilized: *Automated exposure control (AEC) *Adjustment of mA and/or kV according to patient size *Use of iterative reconstruction technique *CT scan done according to ALARA, or ALARA/IMAGE GENTLY FINDINGS: The ventricles and sulci are prominent consistent with cerebral volume loss. Patchy ill-defined low attenuation areas in the subcortical and periventricular white matter bilaterally are consistent with microvascular disease. There is no evidence of acute intracranial hemorrhage, extra-axial collection, mass effect, midline shift, or acute territorial infarct. No lesion of the skull base or the calvarium is seen. The visualized paranasal sinuses, mastoid air cells and orbits are normal in appearance. IMPRESSION: No evidence for acute intracranial abnormality. Volume loss and microvascular disease. Electronically signed by: Yaniv Barker MD (07/18/2021 1:20 PM) Course & Med Decision Making: Course & Med Decision Making Patient was offered further observation but refused, she is A/O x3, wants to go home. Will arrange for transport home for her to her provided address on her ID. Advised to follow-up with your primary care doctor regarding her confusion as she may have early stages of dementia. Labs and imaging are unrevealing today and there is not indication for admission. No further complaints at this time and she does not want to stay Departure Departure Impression: Primary Impression: Transient confusion Disposition: 01 HOME / SELF CARE / HOMELESS Condition: STABLE Referrals: DAVY WOODS MD (PCP) Patient Instructions: Confusion Additional Instructions: You were seen in the emergency department and your health condition was deemed not to require admission to the hospital. It is important to realize that we can only evaluate you during the time that you are in her department. Occasionally health conditions can worsen upon leaving the emergency department. If this were to happen, please return to and allow us the opportunity to reevaluate you. It is a pleasure to take care of your health needs. Return to the ER if your symptoms worsen, do not improve, or if you develop additional symptoms that are concerning to you HARI REYES DO Jul 18, 2021 12:43
[2021-07-18] MEDS ORDERED: IV NORMAL SALINE 1000ML BAG 1,000 ML IV SCH (12:45)
[2021-07-18 13:00] LABS: BILIRUBIN,URINE MODERATE (NEG); CLARITY,URINE CLEAR; COLOR,URINE AMBER; NITRITE,URINE NEGATIVE (NEG); PH,URINE 5.5 (<5.0-8.0); PROTEIN,URINE 30 mg/dL (NEG-TRACE)
[2021-07-18 13:14] LABS: BASO # 0.1 x10^3/uL (0.0-0.2); BASO % 1 % (0-3); EOS # 0.1 x10^3/uL (0.0-0.7); EOS % 1 % (0-3); HEMATOCRIT 39.9 % (36.0-47.0); HEMOGLOBIN 13.4 g/dL (12.0-15.5); LYMPH # 1.2 x10^3/uL (1.0-4.8); LYMPH % 10 % (24-48); MEAN CORPUSCULAR HEMOGLOBIN 29 pg (25-35); MEAN CORPUSCULAR HGB CONC 34 g/dL (31-37); MEAN CORPUSCULAR VOLUME 86 fL (79-100); MONO # 0.8 x10^3/uL (0.0-1.1); MONO % 7 % (0-9); NEUT # 9.4 x10^3/uL (1.8-7.7); NEUT % 81 % (31-73); PLATELET COUNT 433 x10^3/uL (140-400); RED BLOOD COUNT 4.61 x10^6/uL (3.50-5.40); RED CELL DISTRIBUTION WIDTH 15.2 % (11.5-14.5); WHITE BLOOD COUNT 11.6 x10^3/uL (4.0-11.0)
[2021-07-18 13:19] LABS: CALCIUM 8.9 mg/dL (8.5-10.1); GFR 43.9; MAGNESIUM 1.8 mg/dL (1.8-2.4); POTASSIUM 3.8 mmol/L (3.5-5.1)
[2021-07-18 13:22] LABS: CREATININE 1.2 mg/dL (0.6-1.0)
--- NOTE | 2021-07-18 13:22 | RAD ---
Exam Date: 07/18/2021 1:[address] HEAD/BRAIN WO Indication: Reason: Altered mental status / Spl. Instructions: / History: . TECHNIQUE: Head CT was performed without intravenous contrast. One or more of the following dose re duction techniques were utilized: *Automated exposure control (AEC) *Adjustment of mA and/or kV according to patient size *Use of iterative reconstruction technique *CT scan done according to ALARA, or ALARA/IMAGE GENTLY FINDINGS: The ventricles and sulci are prominent consistent with cerebral volume loss. Patchy ill-defined low attenuation areas in the subcortical and periventricular white matter bilaterally are consistent with microvascular disease. There is no evidence of acute intracranial hemorrhage, extra-axial collecti on, mass effect, midline shift, or acute territorial infarct. No lesion of the skull base or the calv arium is seen. The visualized paranasal sinuses, mastoid air cells and orbits are normal in appearanc e. IMPRESSION: No evidence for acute intracranial abnormality. Volume loss and microvascular disease. Electronically signed by: Yaniv Barker MD (07/18/2021 1:20 PM) [facility]
[2021-07-18 13:46] LABS: BACTERIA,URINE FEW /HPF (0-FEW)
[2021-07-18 13:47] LABS: HYALINE CASTS, URINE MANY /HPF
[2021-07-18 14:54] VITALS: BP 161/74
== END 2021-07-18 14:59 | disposition home or self-care (01) ==
LOC: ER 12:21
DX: R41.0 Disorientation, unspecified (principal); E11.9 Type 2 diabetes mellitus without complications; G89.29 Other chronic pain; F17.200 Nicotine dependence, unspecified, uncomplicated
CPT/HCPCS: 36415; 70450; 80048; 81001; 83735; 84443; 85025; 96360; 99285; J7030